=== PATIENT | male | born 1965 | race Caucasian/White ===

== ENCOUNTER → 2019-12-19 | Outpatient (CLI) | payer BC ==
--- NOTE | 2019-12-22 16:27 | SLEEPCENT ---
DATE OF PROCEDURE: 12/22/2018 ORDERED BY: Mara De León Nocturnal polysomnography was performed for evaluation of sleep physiology in this patient with history of excessive somnolence and nonrestorative sleep. 8 hours and 12 minutes of data were reviewed. There were 448.5 minutes of sleep identified. Sleep latency was normal at 9 minutes. REM latency was normal at 71-minute sleep architecture showed poor progression. Following interventions architecture improved substantially. Overall sleep efficiency was 92.5%. The electrocardiogram showed a what appeared to be a sinus mechanism with an average heart rate of 76 beats per minute. EEG showed reasonably normal waveforms for awake and sleep. There were 250 respiratory events identified of 10 seconds in duration or greater for an apnea-hypopnea index of 33.4. Having clearly established the presence of obstructive sleep apnea syndrome. Testing was stopped shortly before midnight for the application of pressure therapy. A [employer]Med air fit F20 full face mask of large size was used 4 cm of water pressure applied to the circuit the lights were again extinguished. Throughout the remaining hours of testing titration was performed to an optimal C-PAP pressure of +13. Significant activity was also seen in the patient's limb leads but limb movement arousal index was only 1.6. IMPRESSION: Are severe obstructive sleep apnea syndrome (G47.33). Apnea-hypopnea index 33.4. RECOMMENDATIONS: Nightly use of pressure therapy 13 cm of water .
== END ==
LOC: M SLEEP 19:51
PROVIDERS: ATTEND Nurse Practitioner Family
DX: R40.0 Somnolence (principal)